=== PATIENT | female | born 1995 | race Caucasian/White ===

== ENCOUNTER 2017-05-14 16:27 | Emergency (ER) | payer BC ==
[2017-05-14 18:05] LABS: URINE BLOOD (Dip) POC Negative (NEGATIVE); URINE GLUCOSE (Dip) POC Negative (NEGATIVE); URINE KETONES (Dip) POC Negative (NEGATIVE); URINE LEUKOCYTE EST (Dip) POC Trace (NEGATIVE); URINE NITRITE (Dip) POC Positive (NEGATIVE); URINE TOTAL PROTEIN POC Negative (NEGATIVE)
[2017-05-14 18:05] LABS: URINE PH (Dip) POC 6.5 (5.0-8.5)
== END 2017-05-14 18:55 | disposition home or self-care (01) ==
LOC: FTE 16:27
DX: N39.0 Urinary tract infection, site not specified (principal); R10.2 Pelvic and perineal pain
CPT/HCPCS: 81003; 82962; 99284

== ENCOUNTER 2017-08-01 04:30 | Emergency (ER) | payer BC | END 2017-08-02 05:31 | disposition home or self-care (01) | LOC: E/R 05:31 | DX: R23.8 Other skin changes (principal) | CPT/HCPCS: 99283; Z7502 ==